=== PATIENT | male | born 1950 | race Caucasian/White ===

== ENCOUNTER 2018-07-09 08:15 | Inpatient (IN) | payer OTHER ==
[~2018-07-09] VITALS: Ht 167.6 cm; Wt 99.3 kg
[~2018-07-09 08:15] MED LIST: CEFADROXIL500 MG PO; GABAPENTIN400 MG PO; GABAPENTIN800 MG PO; LODINE XL500 MG PO; PERCOCET 5-3251 EACH PO; XARELTO10 MG PO
[2018-07-24] MEDS ORDERED: VOLTAR PO (08:17)
[2018-07-29] MEDS ORDERED: DICLOFENAC SODI75 MG PO (09:54)
[2018-07-31] MEDS ORDERED: ELIQUIS2.5 MG PO (15:17)
[2018-07-31] MEDS ORDERED: PERCOCET 5-3251 EACH PO (15:17)
[2018-07-31] MEDS ORDERED: DUI500 PO (15:17)
== END 2018-07-31 15:56 | disposition home or self-care (01) | DRG 470 ==
LOC: SURG 07-29 05:35 → O/R 07-29 05:35 → SURH 07-29 07:00 → SURG 07-29 10:25
PROVIDERS: ADMIT Orthopaedic Surgery
PROC: 0MNN0ZZ Release Right Knee Bursa and Ligament, Open Approach (ICD-10-PCS; 2018-07-29)
PROC: 0SRC0J9 Replacement of Right Knee Joint with Synthetic Substitute, Cemented, Open Approach (ICD-10-PCS; principal; 2018-07-29 10:15)
DX: M17.11 Unilateral primary osteoarthritis, right knee (principal); D62 Acute posthemorrhagic anemia; M21.161 Varus deformity, not elsewhere classified, right knee; I10 Essential (primary) hypertension

== ENCOUNTER 2019-02-18 09:46 | Outpatient (CLI) | payer OTHER ==
[~2019-02-18 09:46] MED LIST changes: +DICLOFENAC SODI75 MG PO; +DUI500 PO; +ELIQUIS2.5 MG PO; +VOLTAR PO
== END 2019-02-18 09:50 | disposition home or self-care (01) ==
LOC: LAB 09:46
DX: M19.91 Primary osteoarthritis, unspecified site (principal)

== ENCOUNTER 2019-03-02 09:39 | Outpatient (CLI) | payer OTHER | END 2019-03-02 15:37 | disposition home or self-care (01) | LOC: MRI 09:39 | DX: M51.87 Other intervertebral disc disorders, lumbosacral region (principal) | CPT/HCPCS: 72148 ==